=== PATIENT | male | born 1970 | race Caucasian/White ===

== ENCOUNTER 2019-08-16 19:25 | Inpatient (IN) | payer OTHER ==
[~2019-08-16] VITALS: Ht 170.2 cm; Wt 81.6 kg
--- NOTE | ~2019-08-16 | PROC ---
[address] [address] PROCEDURE REPORT Name: DARCI HERRERA Room: [address] IN M.R.#: [id number] Admission: 08/16/19 Attend Phys: Darwin Norman MD Discharge: Date of : 68 Report #: [id number] THIS REPORT FOR: //name// For GI report, please see the Provation report in Perceptive 7 content. By: 0640Medical Records Staff KATI /ARABELLA
--- NOTE | ~2019-08-16 | PROC ---
[address] [address] PROCEDURE REPORT Name: DARCI HERRERA Room: [address] IN M.R.#: [id number] Admission: 08/16/19 Attend Phys: Darwin Norman MD Discharge: Date of : 68 Report #: [id number] THIS REPORT FOR: //name// For GI report, please see the Provation report in Perceptive 7 content. By: 0633Medical Records Staff KATI /ARABELLA
[2019-08-16 19:33] VITALS: BP 145/92
[2019-08-16] MEDS ORDERED: EUTHYROX175 MCG PO (19:36)
[2019-08-16 20:07] LABS: ABSOLUTE BASOPHILS 0.1 thou/uL (0.0-0.2); ABSOLUTE EOSINOPHILS 0.1 thou/uL (0.0-0.7); ABSOLUTE LYMPHOCYTES 1.7 thou/uL (0.8-5.3); ABSOLUTE NEUTROPHILS 14.7 thou/uL (1.6-8.1); BASOPHILS 0.3 %; EOSINOPHILS 0.5 %; HEMATOCRIT 42.3 % (42.0-52.0); LYMPHOCYTES 9.9 %; MCH 30.3 pg (26.0-34.0); MCHC 35.5 g/dL (28.0-37.0); MCV 85.3 fL (80.0-100.0); MPV 8.6 fl. (7.2-11.1); NUCLEATED RBCS 0 /100WBC; PLATELET COUNT* 227 thou/uL (150-400); POLYS 83.3 %; RBC 4.96 mil/uL (4.50-6.00); RDW-CV 12.5 % (10.5-14.5); WBC 17.6 thou/uL (4.0-11.0)
[2019-08-16 20:16] LABS: CALCIUM 8.4 mg/dL (8.5-10.1); CREATININE 0.9 mg/dL (0.6-1.3); POTASSIUM 3.7 mmol/L (3.5-5.1)
[2019-08-16 20:17] LABS: INR 0.9; PROTIME 9.7 Seconds (9.20-11.50)
[2019-08-16 20:27] LABS: TOTAL BILIRUBIN 0.5 mg/dL (<0.1-1.0); TOTAL PROTEIN 7.3 g/dL (6.4-8.2)
[2019-08-17] VITALS (7 sets, daily range): BP systolic 98–135; BP diastolic 52–66
--- NOTE | 2019-08-17 08:08 | NUR ---
PT A+O X4. ARRRIVED TO ROOM 110 PER CART. SLEEPY UPON ARRIVAL BUT AWOKE EASILY TO VOICE. ABLE TO FINISH ADMISSION HISTORY WITH . PAIN MEDS FROM ER EFFECTIVE THROUGH END OF SHIFT. CALL LIGHT IN REACH. HOURLY ROUNDING FOR SAFETY.
[2019-08-17 09:31] LABS: ABSOLUTE BASOPHILS 0.1 thou/uL (0.0-0.2); ABSOLUTE LYMPHOCYTES 1.3 thou/uL (0.8-5.3); ABSOLUTE MONOCYTES 1.2 thou/uL (0.0-1.2); ABSOLUTE NEUTROPHILS 14.2 thou/uL (1.6-8.1); BASOPHILS 0.4 %; EOSINOPHILS 0.1 %; HEMATOCRIT 38.3 % (42.0-52.0); HEMOGLOBIN 13.5 gm/dL (14.0-18.0); LYMPHOCYTES 7.6 %; MCH 29.8 pg (26.0-34.0); MCHC 35.2 g/dL (28.0-37.0); MCV 84.6 fL (80.0-100.0); MONOCYTES 6.9 %; MPV 8.6 fl. (7.2-11.1); NUCLEATED RBCS 0 /100WBC; PLATELET COUNT* 174 thou/uL (150-400); RBC 4.53 mil/uL (4.50-6.00); RDW-CV 12.9 % (10.5-14.5); WBC 16.7 thou/uL (4.0-11.0)
[2019-08-17 09:38] LABS: ALBUMIN 3.1 g/dL (3.4-5.0); CALCIUM 7.6 mg/dL (8.5-10.1); CREATININE 0.8 mg/dL (0.6-1.3); POTASSIUM 3.8 mmol/L (3.5-5.1); TOTAL BILIRUBIN 1.1 mg/dL (<0.1-1.0); TOTAL PROTEIN 6.1 g/dL (6.4-8.2)
[2019-08-17 11:11] LABS: AMP/METHAMP Negative (Negative); BARBITURATES Negative (Negative); BENZODIAZEPINES Negative (Negative); COCAINE Negative (Negative); METHADONE Negative (Negative); OPIATES POSITIVE (Negative); PCP Negative (Negative); THC Negative (Negative)
[2019-08-17 12:47] LABS: INFLUENZA A ANTIGEN Negative (Negative); INFLUENZA B ANTIGEN Negative (Negative)
--- NOTE | 2019-08-17 13:02 | NUR ---
CM COMPLETED INITIAL ASSESSMENT TO DISCUSS D/C PLAN. PT RESTING W/EYES CLOSE. PT'S AT BEDSIDE. DIONNA STATED PT IS EMLOYEED, ACTIVE AND INDEPENDENT. PT HAS NO DMES AND NO HX W/SNF OR HH. PT HAS SUPPORTIVE FAMILY. CM TO CONT TO FOLLOW.
--- NOTE | 2019-08-17 14:35 | EKG ---
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 Delivery Specialist: : 1970 Requested By: Sun Dee Order Number: [id number] MD: Jerod Mosquera Measurements Intervals [place] Rate: 72 P: 56 DE: 176 QRS: -36 QRSD: 106 T: 56 QT: 389 QTc: 426 Interpretive Statements Sinus rhythm Left axis deviation Low voltage, extremity leads Abnormal R-wave progression, late transition No previous ECG available for comparison Electronically Signed On 08-17-2019 14:34:32 BLANCHING MACHINE OPERATOR by Jerod Mosquera [email or web address] <ELECTRONICALLY SIGNED> By: Jerod Mosquera MD, [facility] 08/17/19 1434 30 30 Jerod Mosquera MD, FACC /EPI
--- NOTE | 2019-08-17 14:40 | EKG ---
[place] [address] ELECTROCARDIOGRAM REPORT Name: DARCI HERRERA Room: [address] ADM IN M.R.#: [id number] Admission: 08/16/19 Attend Phys: Darwin Norman MD Discharge: Date of : 68 Report #: [id number] THIS REPORT FOR: //name// [facility] Test Date: 2019-08-17 Test Time: 10:32:37 Pat Name: DARCI HERRERA Department: Room: [address] Gender: M President: KF : 1970 Requested By: Darwin Norman Order Number: [id number] Reading MD: Jerod Mosquera Measurements Intervals [place] Rate: 92 P: 49 [place]: 165 QRS: -36 QRSD: 100 T: 36 QT: 329 QTc: 407 Interpretive Statements Sinus rhythm Left axis deviation Borderline low voltage, extremity leads Abnormal R-wave progression, late transition ST elev, probable normal early repol pattern No previous ECG available for comparison Electronically Signed On 08-17-2019 14:39:21 KITCHEN HAND by Jerod Mosquera [email or web address] <ELECTRONICALLY SIGNED> By: Jerod Mosquera MD, FAC 08/17/19 1439 1032 1032 Jerod Mosquera MD, [facility] /EPI
--- NOTE | 2019-08-17 21:21 | NUR ---
I ASSUMED CARE OF THE PATIENT AT 0700. HE WAS ALERT AND ORIENTED X4, BUT VERY GROGGY. BED IS IN THE LOW LOCKED POSITION AND CALL LIGHT IS IN REACH. HOURLY ROUNDING IS COMPLETED AND PATIENT NEEDS ARE MET. PAIN IS NOT WELL CONTROLLED SUBJECTIVELY, BUT PATIENT RESTS WELL FOR SEVERAL HOURS AFTER MEDS ARE GIVEN. THE SHIFT GOES ON, HE GETS A FEVER AND TYLENOL HELPS. AT THE END OF THE SHIFT, FEVER IS HIGH AND IS ONLY PARTIALLY RELIEVED. NEW ORDERS OBTAINED. PHYSICAN CONTACTED. FAMILY IS AT THE BEDSIDE. ICE PACKS WERE APPLIED, BLANKETS REMOVED, ROOM TEMP DECREASED, PRN MEDS GIVEN. EGD IS SCHEDULED FOR TOMORROW PER DR MOHR. HE IS UNABLE TO SIGN CONSENT AT THIS TIME. REPORT GIVEN TO LEROY AND WILL CONTINUE TO MONITOR. BLOOD PRESSURE IS TRENDING DOWN ALL DAY.
--- NOTE | 2019-08-17 22:23 | NUR ---
INITAL ASSESSMENT COMPLETED AT 1999. LACTIC ACID AND BLOOD CULTURES DRAWN FOR ELEVATED TEMP. DYNAMAP SET TO RECORD HOURLY BLOOD PRESSURE. PULSE OX ON PT TO MONITOR OXYGEN DEMAND. HOURLY TEMPERATURES BEING TAKEN. PT LETHARGIC, FOLLOWS COMMANDS. PT'S AT BEDSIDE WITH CALL LIGHT TO NOTIFY STAFF.
[2019-08-18] VITALS (9 sets, daily range): BP systolic 98–124; BP diastolic 55–67
[2019-08-18 05:02] LABS: ALBUMIN 2.6 g/dL (3.4-5.0); CALCIUM 7.8 mg/dL (8.5-10.1); CREATININE 1.2 mg/dL (0.6-1.3); TOTAL BILIRUBIN 1.3 mg/dL (<0.1-1.0); TOTAL PROTEIN 5.9 g/dL (6.4-8.2)
[2019-08-18 05:25] LABS: HEMATOCRIT 38.5 % (42.0-52.0); HEMOGLOBIN 13.5 gm/dL (14.0-18.0); MCH 30.3 pg (26.0-34.0); MCHC 35.1 g/dL (28.0-37.0); MCV 86.5 fL (80.0-100.0); MPV 10.1 fl. (7.2-11.1); NUCLEATED RBCS 0 /100WBC; PLATELET COUNT* 135 thou/uL (150-400); RBC 4.45 mil/uL (4.50-6.00); WBC 9.1 thou/uL (4.0-11.0)
[2019-08-18 05:35] LABS: URINE BILIRUBIN NEGATIVE (Negative); URINE BLOOD NEGATIVE (Negative); URINE CLARITY CLEAR; URINE COLOR YELLOW; URINE GLUCOSE-RANDOM NEGATIVE (Negative); URINE KETONES NEGATIVE (Negative); URINE LEUKOCYTES-REFLEX NEGATIVE (Negative); URINE NITRITE-REFLEX NEGATIVE (Negative); URINE PROTEIN 1+ (Negative); URINE SPECIFIC GRAVITY 1.025 (1.005-1.030); URINE UROBILINOGEN 0.2 E.U./dl (0.2-1.0)
[2019-08-18 06:12] LABS: ABSOLUTE LYMPHOCYTES 0.8 thou/uL (0.8-5.3); ABSOLUTE MONOCYTES 0.1 thou/uL (0.0-1.2); ABSOLUTE NEUTROPHILS 8.2 thou/uL (1.6-8.1)
[2019-08-18 06:13] LABS: ANISOCYTOSIS 1+; PLATELET ESTIMATE DECREASED; POIKILOCYTOSIS 1+
--- NOTE | 2019-08-18 06:13 | NUR ---
HOURLY VITAL SIGNS DONE DURING MACHINE CELL TUBER. PT'S T MAX AT WAS 103 ORAL. PT PACKED IN ICE AND GIVEN TYLENOL DURING THAT TIME. PT LETHARGIC AND CONUSED DURING SHIFT. PT MORE ALERT AND DOES ANSWER APPROPRIATELY AT THIS TIME. PT HAD TOTAL 600 ML TEA COLORED CLOUDY URINE PUTPUT FOR ENTIRE SHIFT.
--- NOTE | 2019-08-18 08:38 | NUR ---
0881 ASSUMED CARE OF PATIENT. PLEASE SEE DOCUMENTED ASSESSMENT. PT IS DROWSY BUT ORIENTED. UP TO BATHROOM WITH ASSIST FOR VOID AND LOOSE BROWN STOOL.
--- NOTE | 2019-08-18 11:08 | NUR ---
1030 TO OR FOR EGD.
--- NOTE | 2019-08-18 14:14 | NUR ---
1340 RECEIVED BACK FROM PACU. ICE BAGS RENEWED. ABLE TO TAKE WATER NOW
--- NOTE | 2019-08-18 15:23 | NUR ---
DR THORNTON TO SEE PATIENT. STOOL TO LAB FOR ENTERIC PATHOGENS
--- NOTE | 2019-08-18 17:18 | NUR ---
PATIENT PRORESSING TOWARDS GOALS. NO FEVER SPIKES TODAY. TO BR FOR MULTIPLE STOOLS.SPECIMEN SENT. EGD COMPLETED. DIET RESUMED BUT PT IS NOT HUNGRY. MANY VISITORS TODAY. AWAIT BLOOD CULTURES AND PATHOLOGY
[2019-08-19] VITALS: BP 120/76
[2019-08-19 03:30] VITALS: BP 134/70
[2019-08-19 03:59] LABS: ABSOLUTE MONOCYTES 0.7 thou/uL (0.0-1.2); ABSOLUTE NEUTROPHILS 9.9 thou/uL (1.6-8.1); BASOPHILS 0.4 %; EOSINOPHILS 0.2 %; HEMATOCRIT 39.1 % (42.0-52.0); HEMOGLOBIN 13.7 gm/dL (14.0-18.0); LYMPHOCYTES 8.9 %; MCH 30.1 pg (26.0-34.0); MCHC 35.2 g/dL (28.0-37.0); MCV 85.5 fL (80.0-100.0); MONOCYTES 5.9 %; MPV 9.3 fl. (7.2-11.1); NUCLEATED RBCS 0 /100WBC; PLATELET COUNT* 144 thou/uL (150-400); POLYS 84.6 %; RBC 4.57 mil/uL (4.50-6.00); RDW-CV 12.6 % (10.5-14.5); WBC 11.7 thou/uL (4.0-11.0)
[2019-08-19 04:24] LABS: ALBUMIN 2.6 g/dL (3.4-5.0); CALCIUM 8.6 mg/dL (8.5-10.1); CREATININE 1.6 mg/dL (0.6-1.3); MAGNESIUM 1.7 mg/dL (1.8-2.4); PHOSPHORUS* 2.8 mg/dL (2.5-4.9); POTASSIUM 3.6 mmol/L (3.5-5.1); TOTAL BILIRUBIN 0.9 mg/dL (<0.1-1.0); TOTAL PROTEIN 6.7 g/dL (6.4-8.2)
[2019-08-19 08:15] VITALS: BP 122/71
--- NOTE | 2019-08-19 09:46 | NUR ---
PATIENT HAS SLEPT WELL THROUGHOUT THE NIGHT. VSS ON RA, ALTHOUGH TEMP ELEVATED. TYLENOL GIVEN AND TEMP IS NOW BACK TO 98.3. FAMILY AT BEDSIDE. MEDICATIONS GIVEN ORDERED AND CHARTED. ASSESSMENT CHARTED. IV IN RIGHT AC-D5 1/2 W/2OK @ 80ML/HR. IV ABT GIVEN WITHOUT ANY ADVERSE SIDE EFFECTS NOTED. PATIENT INSTRUCTED TO USE CALL LIGHT WHEN NEEDING ASSISTANCE. HOURLY ROUNDS MADE. WILL CONTINUE WITH PLAN OF CARE AND NURSING TO MONITOR.
--- NOTE | 2019-08-19 11:54 | CON ---
[address] [address] CONSULTATION Name: DARCI HERRERA Room: [address] IN M.R.#: [id number] Admission: 08/16/19 Attend Phys: Darwin Norman MD Discharge: Date of : 68 Report #: [id number] THIS REPORT FOR: //name// CC: Darwin Brown DATE OF SERVICE: 08/18/2019 INFECTIOUS DISEASE CONSULTATION ATTENDING PHYSICIAN: Darwin Norman MD REASON FOR EVALUATION: Abdominal pain with high-grade fevers. HISTORY OF PRESENT ILLNESS: Chart reviewed, the patient examined. This is a 49-year-old without significant medical history. He does describe reflux disease, who over the course of a fairly short period of time on day of admission, had developed severe epigastric type pain with associated nausea, several episodes of emesis, did appreciate some dyspnea as well and he attributes to the severe pain. He was evaluated in the Emergency Room, not felt to be cardiac in nature. Initial white count was elevated at 17.6. Chest x-ray was otherwise unremarkable as was CT of the chest excluded dissection. Lactic acid was normal, range is 0.8. Ultrasound of the abdomen did show evidence of cholelithiasis and sludge associated with the gallbladder, some wall thickening. Influenza antigen was negative. Initially had been afebrile; however, within the first 24 hours had developed high-grade fevers to 103.1. He has had persistent pain and actually underwent upper endoscopy today, which showed some gastritis, erosive esophagitis. Due to fevers, he was empirically started on broad-spectrum antimicrobial therapy with piperacillin and tazobactam. Temperature is somewhat lower today, although still 100-101 range on last check. He is mildly encephalopathic and somnolent perhaps due to analgesics. On questioning with his spouse as well, denied any particular exposure history. 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 No recent travel. They have 2 dogs, which they have had for a number of years. He is not aware of any dietary indiscretion. He does eat food from [place]. ALLERGIES: None known. MEDICATIONS: Include pantoprazole, enoxaparin, ketorolac, p.r.n. analgesics, antiemetics, Zosyn, lorazepam as needed, nicotine patch. PAST MEDICAL HISTORY: Reflux, hyperlipidemia, previous appendectomy, tonsillectomy. SOCIAL HISTORY: Smokes a pack a day for the last 32 years, occasional ethanol twice weekly. [place] [address] CONSULTATION Name: DARCI HERRERA Room: [address]#: [id number] Admission: 08/16/19 Attend Phys: Darwin Norman MD Discharge: Date of : 68 Report #: [id number] FAMILY HISTORY: Noncontributory. REVIEW OF SYSTEMS: As noted above. PHYSICAL EXAMINATION: GENERAL: He is quite lethargic, does arouse, difficult to ascertain since he is post-procedure. He is at least moderate distress. VITAL SIGNS: Recent temperature 100.7, pulse 84, respirations 20. Blood cultures 122/60. SKIN: Warm, dry, no rashes. HEENT: Normocephalic. Extraocular muscles intact. NECK: Supple. LUNGS: Diminished breath sounds, otherwise clear. HEART: Regular. I do not appreciate murmur. ABDOMEN: Somewhat tender to palpation, mildly distended. I do not think there are any peritoneal signs. GENITOURINARY AND RECTAL: Deferred. LABORATORY DATA: Blood cultures are sterile thus far. CBC from earlier today, white count of 9.1, H and H 13.5 and 38.5, platelets of 135. Urinalysis unrevealing. Electrolytes: Sodium 137, potassium 4.0, chloride 102, bicarbonate is 29, anion gap of 6, BUN and creatinine 15 and 1.2, glucose of 143. LFTs unremarkable. Albumin of 2.6. Total protein 5.9, estimated GFR 64. Lactic acid yesterday evening was 2.0. Influenza antigen was negative. Ultrasound as described above. ASSESSMENT: Febrile illness with associated abdominal pain. At this point, it is not entirely clear as to the etiology. Certainly biliary tract etiology may well be a possibility. GI is evaluating. We will see what they recommend. There is enteric pathogen culture obtained on the stool. At this point, would continue empiric therapy, Zosyn is reasonable choice for intra-abdominal type complaints, certainly at risk for nosocomial-related infectious complications as well given his altered state and particular aspiration. We will await blood culture results. At this point, it is not clear any additional diagnostic testing is warranted. Pending is current outstanding results and see how he does clinically over the next 24-48 hours. <ELECTRONICALLY SIGNED> By: Jose Panchal MD 08/19/19 1154 1707 0208Jose Panchal MD /nt
--- NOTE | 2019-08-19 12:55 | CON ---
[address] [address] CONSULTATION Name: DARCI HERRERA Room: [address] IN M.R.#: [id number] Admission: 08/16/19 Attend Phys: Darwin Norman MD Discharge: Date of : 68 Report #: [id number] THIS REPORT FOR: //name// CC: Darwin Saunders Mouse Chip Mouse DO DICTATED BY: Lillian Quan [facility] DATE OF SERVICE: 08/17/2019 Please note at the time of this dictation, the patient was seen and physically examined by myself. REASON FOR CONSULTATION: Nausea, vomiting and epigastric burning into his mid chest and some generalized abdominal pain. HISTORY OF PRESENT ILLNESS: This is a 49-year-old male who presented to the Emergency Room with worsening of this epigastric pain that started. He does state he has a history of GERD, but he does not take anything on a regular basis for this that has been going on for the last 8 hours and progressively gotten worse. He states he noticed he was having some difficulty breathing with all this severe pain, then radiated into his back. He denies any bright red blood or coffee ground emesis. His bowels move daily, soft and formed with no evidence of any bright red blood or melanotic stool. He has never had any endoscopy studies done per his . The patient earlier today after arriving on the floor had an episode of shaking and not being coherent, having increased difficulty breathing and dropping his sats. He was given medications for his pain and some Ativan and is currently sleeping at all off and we will have to wait for further evaluation endoscopically once he has recovered from this bout. ALLERGIES: No known drug allergies. MEDICATIONS FROM HOME: He is on levothyroxine. PAST MEDICAL HISTORY: Acid reflux, thyroid and hyperlipidemia. PAST SURGICAL HISTORY: Negative. FAMILY HISTORY: Noncontributory and negative for any GI or female cancers. SOCIAL HISTORY: He does chew tobacco daily as well as smoked about a pack a week. He does drink about a pint total in a month socially and denies any illegal drug use. REVIEW OF SYSTEMS: Twelve-point review [place] [address] CONSULTATION Name: JAVIERDARCI Terry Abdirahman Room: [address] IN [facility]#: [id number] Admission: 08/16/19 Attend Phys: Darwin Norman MD Discharge: Date of : 68 Report #: [id number] except what is mentioned in the HPI. PHYSICAL EXAMINATION: VITAL SIGNS: Temperature 36.4, pulse 65, respirations 16 and blood pressure 135/65. HEART: Regular rate and rhythm. LUNGS: Diminished, but clear. ABDOMEN: Soft, positive bowel sounds in all 4 quadrants with tenderness noted throughout the entire abdomen, especially on the right side and in the epigastric area. LABORATORY DATA: Hemoglobin is 13.5, white count is 16.7 and platelets 174. GFR is 102. Total bilirubin 1.1, alkaline phosphatase 76, ALT 24, AST is 14. Chest x-ray is normal and the CT is completely normal, shown some cholelithiasis. IMPRESSION: 1. Nausea and vomiting. 2. Abdominal pain, burning sensation. 3. Leukocytosis. 4. Questionable seizure-like activity. PLAN: 1. Ultrasound of the abdomen pending. 2. We will await patient's mental status to return back to baseline. 3. Consider an EGD for his symptoms and that will be determined once Dr. Carvajal sees the patient later today. Thank you for allowing us to participate in this patient's care. Please do not hesitate to call with any questions in regard to this consult. <ELECTRONICALLY SIGNED> By: [place] Hugo Carvajal MD 08/19/19 1255 1216 1524Victor Hugo Carvajal MD /nt
--- NOTE | 2019-08-19 14:07 | PATH ---
[facility] [address] [place] [address] PATHOLOGY RPT PROCEDURE Name: DARCI KAUFFMAN Room: [facility] IN M.R.#: [id number] Admission: 08/16/19 Date of : 68 Discharge: Report #: [id number] Path Case #: [id number] [facility] Accession Number: [id number] . 01 Material submitted: . PART A: duodenum - DUODENAL BIOPSY PART B: stomach - GASTRIC BIOPSY . 01 Clinical history: . None provided . 02 Diagnosis: A. Duodenal biopsy: - Moderate nonspecific active duodenitis, negative for granulomas, viral inclusions and dysplasia. . B. Gastric biopsy: - Mild nonspecific chronic gastritis, negative for Helicobacter pylori organisms, granulomas and dysplasia. . (KAREN:javier; 08/19/2019) . Special stain on B: H. pylori immuno MBR 08/19/2019 1045 Local . 02 Electronically signed: . Xiang Pike MD, Pathologist NPI- [id number] . 01 Gross description: . A. Received in formalin labeled "Darci Kaufmfan, duodenal biopsy," are 5 segments of luna soft tissue measuring 0.9 x 0.7 x 0.2 cm in aggregate dimensions and ranging from 0.2 to 0.4 cm in maximum dimension. The specimen is submitted entirely in cassette A1. . B. Received in formalin labeled "Darci Kauffman, gastric biopsy for gastritis," are 2 segments of luna soft tissue measuring 0.9 x 0.2 x 0.2 cm in aggregate dimensions and ranging from 0.3 to 0.6 cm in maximum dimension. The specimen is submitted entirely in cassette B1. (TSD; 08/18/2019) TOB/TOB 08/18/20191955 Local . 02 Pathologist provided ICD-10: K29.80, K29.50 . 02 CPT . 156722, 044160, T93521 Specimen Comment: A courtesy copy of this report has been sent to [phone], [place] [address] PATHOLOGY RPT PROCEDURE Name: DARCI KAFUFMAN Room: [address] IN .R.#: [id number] Admission: 08/16/19 Date of : 68 Discharge: Report #: [id number] Path Case #: [id number] Specimen Comment: 0113, Specimen Comment: Report sent to ,DR BAKER / DR LUJAN Performed at: [address], [place], [place] [address] MD Sergo Coronado MD Phone: [phone] Performed at: [address] [address], [place], [place] [id number] MD Xiang Pike MD Phone: [phone]
[2019-08-19 16:00] VITALS: BP 123/78
--- NOTE | 2019-08-19 16:29 | NUR ---
PATIENT ALERT AND ORIENTED X 4. VITAL SIGNS STABLE ON ROOM AIR. PATIENT HAS REMAINED AFEBRILE TODAY. UP INDEPENDENTLY IN ROOM. IV PATENT WITH FLUIDS INFUSING. PAIN BEING MANAGED WITH IV MEDICATION. DENIES NAUSEA AT THIS TIME. PATIENT HAS LACK OF APPETITE. HOURLY ROUNDS MAINTAINED THROUGHOUT THE SHIFT. CALL LIGHT WITHIN REACH. NURSING WILL CONTINUE TO MOITOR.
[2019-08-19 20:30] VITALS: BP 124/76
[2019-08-19 23:23] VITALS: BP 125/79
[2019-08-20 02:06] LABS: HEPATITIS B SURFACE AG Negative (Negative)
[2019-08-20 03:57] LABS: HEMATOCRIT 32.5 % (42.0-52.0); HEMOGLOBIN 11.8 gm/dL (14.0-18.0); MCH 30.9 pg (26.0-34.0); MCHC 36.2 g/dL (28.0-37.0); MCV 85.3 fL (80.0-100.0); MPV 8.5 fl. (7.2-11.1); RBC 3.81 mil/uL (4.50-6.00); RDW-CV 12.8 % (10.5-14.5)
[2019-08-20 04:06] LABS: CALCIUM 8.3 mg/dL (8.5-10.1); CREATININE 1.2 mg/dL (0.6-1.3); PHOSPHORUS* 2.4 mg/dL (2.5-4.9); POTASSIUM 3.5 mmol/L (3.5-5.1); TOTAL BILIRUBIN 0.6 mg/dL (<0.1-1.0); TOTAL PROTEIN 5.6 g/dL (6.4-8.2)
--- NOTE | 2019-08-20 06:17 | NUR ---
Alert and oriented x 4. Vitals are stable,roomair sat 95-97%. He is up independently to the bathroom. Stool speciman obtained and sent to lab. He had Iv toradol for pain and tylenol x 1 this shift. He did have lorazepam at bedtime and it helped him sleep.
[2019-08-20 07:35] VITALS: BP 134/78
[2019-08-20 16:00] VITALS: BP 128/73
--- NOTE | 2019-08-20 17:03 | NUR ---
PT REMAINED ALERT AND ORIENTED. PT RESTING IN BED. ORDER FOR C.DIFF SAMPLE, PT HAS NOT HAD BM SINCE ORDER PLACED. FALL RISK PRECAUTIONS IN PLACE. HOURLY ROUNDING COMPLETED. WILL CONTINUE TO MONITOR.
[2019-08-20 20:27] VITALS: BP 134/76
--- NOTE | 2019-08-21 05:12 | NUR ---
PATIENT DID NOT REQUEST ANY PAIN MEDICATION OR REPORT ANY NAUSEA. STILL UP AD ARCHANA AND DID GET STOOL SAMPLE TO LAB. HIS STOOL IS WATERY AND BLACK. HE REPORTS THIS STARTING LIKE THIS YESTERDAY. FLUIDS AND PROBIOTICS GIVEN SCHEDULED. PLAN IS TO CONTINUE ABX TREATMENT. NO FEVER THIS SHIFT. WILL CONTINUE TO FOLLOW PLAN OF CARE.
[2019-08-21 07:05] VITALS: BP 123/75
--- NOTE | 2019-08-21 17:27 | NUR ---
pt remained alert and oriented. pt had fevers throughout the day, meds given as ordered. new iv placed lt ac. fall risk precautions in place. hourly rounding completed. will continue to monitor.
[2019-08-21 18:33] VITALS: BP 136/71
[2019-08-21 21:27] VITALS: BP 136/85
[2019-08-22 04:25] LABS: HEMATOCRIT 30.9 % (42.0-52.0); HEMOGLOBIN 10.8 gm/dL (14.0-18.0); MCH 30.3 pg (26.0-34.0); MCHC 35.1 g/dL (28.0-37.0); MCV 86.1 fL (80.0-100.0); RBC 3.59 mil/uL (4.50-6.00); RDW-CV 12.9 % (10.5-14.5); WBC 10.1 thou/uL (4.0-11.0)
[2019-08-22 04:39] LABS: ALBUMIN 1.9 g/dL (3.4-5.0); CALCIUM 8.1 mg/dL (8.5-10.1); MAGNESIUM 1.7 mg/dL (1.8-2.4); POTASSIUM 3.3 mmol/L (3.5-5.1); TOTAL BILIRUBIN 0.3 mg/dL (<0.1-1.0); TOTAL PROTEIN 5.6 g/dL (6.4-8.2)
--- NOTE | 2019-08-22 05:09 | NUR ---
PATIENT AMBULATING HALLS WELL AND TOLERATING FLUIDS. HIS DIARRHEA HAS SUBSIDED AND HE HAS NOT REPORTED ANY PAIN OR NAUSEA. PLAN IS FOR FURTHER OBSERVATION TO PLAN DISCHARGE. SLEPT WELL ALL SHIFT. WILL CONTINUE TO FOLLOW PLAN OF CARE.
[2019-08-22 07:05] VITALS: BP 138/86
[2019-08-22 16:00] VITALS: BP 133/84
--- NOTE | 2019-08-22 17:22 | NUR ---
PT REMAINED ALERT AND ORIENTED. PT RESTING IN BED. PT PASSING GAS AND HVAING BMS AFTER SUPPOSSITORY. ABD STLIGHTLY SOFTER THAN THIS MORNING. FALL RISK PRECAUTIONS IN PLACE. HOURLY ROUNDING COMPLETED. WILL CONTINUE TO MONITOR.
[2019-08-22 20:06] VITALS: BP 131/81
[2019-08-23 03:52] LABS: HEMATOCRIT 33.7 % (42.0-52.0); HEMOGLOBIN 11.6 gm/dL (14.0-18.0); MCH 29.9 pg (26.0-34.0); MCHC 34.6 g/dL (28.0-37.0); MCV 86.4 fL (80.0-100.0); RBC 3.9 mil/uL (4.50-6.00); RDW-CV 13.2 % (10.5-14.5); WBC 10.5 thou/uL (4.0-11.0)
[2019-08-23 04:02] LABS: ALBUMIN 1.9 g/dL (3.4-5.0); CALCIUM 7.8 mg/dL (8.5-10.1); MAGNESIUM 1.8 mg/dL (1.8-2.4); POTASSIUM 3.3 mmol/L (3.5-5.1); TOTAL BILIRUBIN 0.2 mg/dL (<0.1-1.0); TOTAL PROTEIN 5.9 g/dL (6.4-8.2)
--- NOTE | 2019-08-23 05:02 | NUR ---
PATIENT AMBULATING WELL AND TOLERATING FLUIDS AND FOOD WELL. HIS APPETITE INCREASED OVER THE LAST 24 HOURS. HE HAS NOT REPORTED ANY PAIN OR NAUSEA. HE REPORTS HIS ABDOMEN IS FEELING SOFTER AND LESS PRESSURE. HE REPORTS PASSING GAS AND BELCHING. HE SLEPT THROUGH THE NIGHT WELL. WILL CONTINUE TO FOLLOW PLAN OF CARE.
[2019-08-23 08:20] VITALS: BP 122/76
[2019-08-23 16:17] VITALS: BP 126/91
--- NOTE | 2019-08-23 19:00 | NUR ---
PATIENT PLEASANT AND COOPERATIVE THRU SHIFT. ALERT AND ORIENTED. PATIENT STATES NOT FEELING WELL THIS SHIFT, PATIENT ENC TO EAT BLAND FOODS, IV FLUIDS INFUSING W/O DIFF. PATIENT STATES MULTIPLE TRIPS TO THE BR, NOT OBSERVED BY NURSING. PATIENT REQUESTS TO GET SOME REST THIS AFTERNOON, ENC TO DIM LIGHTS AND CLOSE THE DOOR. XRAY TESTING DONE THIS AM. HRLY ROUNDS DONE. CALL LIGHT INR EACH. ~TJRN
[2019-08-23 20:00] LABS: CALCIUM 8.2 mg/dL (8.5-10.1); POTASSIUM 3.7 mmol/L (3.5-5.1)
[2019-08-24 04:19] LABS: HEMATOCRIT 32.5 % (42.0-52.0); HEMOGLOBIN 11.4 gm/dL (14.0-18.0); MCH 30.2 pg (26.0-34.0); MCHC 35.1 g/dL (28.0-37.0); MPV 8.2 fl. (7.2-11.1); RBC 3.78 mil/uL (4.50-6.00); RDW-CV 13.1 % (10.5-14.5); WBC 11.2 thou/uL (4.0-11.0)
[2019-08-24 04:41] LABS: CALCIUM 7.7 mg/dL (8.5-10.1); CREATININE 0.9 mg/dL (0.6-1.3); MAGNESIUM 1.9 mg/dL (1.8-2.4); POTASSIUM 3.4 mmol/L (3.5-5.1); TOTAL BILIRUBIN 0.3 mg/dL (<0.1-1.0); TOTAL PROTEIN 5.9 g/dL (6.4-8.2)
--- NOTE | 2019-08-24 06:45 | NUR ---
PATIENT HAS SLEPT WELL THROUGHOUT THE NIGHT. VSS ON RA. NO C/O PAIN. MEDICATIONS GIVEN ORDERED AND CHARTED. ASSESSMENT CHARTED. IV IN RIGHT FOREARM-LR @ 80ML/HR. PATIENT HAS BEEN NPO SINCE MIDNIGHT D/T ABDOMINAL SERIES SCHEDULED THIS AM. PATIENT INSTRUCTED TO USE CALL LIGHT WHEN NEEDING ASSISTANCE. HOURLY ROUNDS MADE. WILL CONTINUE WITH PLAN OF CARE AND NURSING TO MONITOR.
[2019-08-24 07:20] VITALS: BP 132/83
[2019-08-24 16:00] VITALS: BP 166/72
--- NOTE | 2019-08-24 17:00 | NUR ---
pt remained alert and oriented. ot passing gas and walking in halls. fall risk precautions in place. hourly rounding completed. will continue to monitor.
[2019-08-25 04:39] VITALS: BP 166/72
--- NOTE | 2019-08-25 06:17 | NUR ---
PATIENT HAS SLEPT WELL THROUGHOUT THE NIGHT. VSS ON RA. MEDICATIONS GIVEN ORDERED AND CHARTED. NO C/O NAUSEA OR VOMITING. PATIENT STILL HAVING DIARRHEA AT TIMES. BOWEL SOUNDS ARE HYPOACTIVE AND ABDOMEN IS FIRM AND DISTENDED. PATIENT REMAINS ON CLEAR LIQUID DIET AT THIS TIME PER ORDER. IV IN RIGHT AC-LR @ 80ML/HR. PATIENT INSTRUCTED TO USE CALL LIGHT WHEN NEEDING ASSISTANCE. HOURLY ROUNDS MADE. WILL CONTINUE WITH PLAN OF CARE AND NURSING TO MONITOR.
[2019-08-25 07:15] VITALS: BP 129/86
[2019-08-25 16:19] VITALS: BP 133/99
--- NOTE | 2019-08-25 17:13 | NUR ---
PT REMAINED ALERT AND ORIENTED. BOWEL PREP STARTED. PAIN MEDS GIVEN ORDERED. FALL RISK PRECAUTIONS IN PLACE. HOURLY ROUNDING COMPLETED. WILL CONTINUE TO MONITOR.
[2019-08-25 22:00] VITALS: BP 136/81
--- NOTE | 2019-08-26 06:59 | NUR ---
PATIENT HAS SLEPT OFF AND ON DURING THE NIGHT. VSS ON RA. MEDICATIONS GIVEN ORDERED AND CHARTED. PATIENT HAS REMAINED NPO SINCE MIDNIGHT D/T SCHEDULED COLONOSCOPY TODAY. CONSENT SIGNED. ABDOMEN FIRM AND DISTENDED WITH BOWEL SOUNDS PRESENT. IV IN RIGHT AC-LR @ 80ML/HR. PATIENT INSTRUCTED TO USE CALL LIGHT WHEN NEEDING ASSISTANCE. HOURLY ROUNDS MADE. WILL CONTINUE WITH PLAN OF CARE AND NURSING TO MONITOR.
[2019-08-26 08:00] VITALS: BP 132/77
--- NOTE | 2019-08-26 15:45 | NUR ---
PT C/O A CATCHING SHARP PAIN IN RIGHT UPPER CHEST. THIS PAIN IS WORSE WITH DEEP BREATHING AND STATED THAT IT TAKES HIS BREATH AWAY. PT STATED THAT IT HAS ABOUT 3 SHARP SHOCKING TYPE PAINS AND THEN GOES AWAY FOR A SHORT AMOUNT OF TIME. CONTACTED THE PATIENTS NURSE JAY FROM [employer] WITH INFORMATION TO HELP PASS ON TO HOSPITALIST.
[2019-08-26 20:00] VITALS: BP 124/76
[2019-08-27] VITALS: BP 134/83
[2019-08-27 03:30] VITALS: BP 131/86
[2019-08-27 04:18] LABS: HEMATOCRIT 33.6 % (42.0-52.0); HEMOGLOBIN 11.6 gm/dL (14.0-18.0); MCH 29.7 pg (26.0-34.0); MCHC 34.4 g/dL (28.0-37.0); MCV 86.4 fL (80.0-100.0); MPV 8.2 fl. (7.2-11.1); RBC 3.89 mil/uL (4.50-6.00); RDW-CV 12.8 % (10.5-14.5); WBC 14.4 thou/uL (4.0-11.0)
[2019-08-27 04:35] LABS: ALBUMIN 2.1 g/dL (3.4-5.0); CALCIUM 7.8 mg/dL (8.5-10.1); CREATININE 0.9 mg/dL (0.6-1.3); MAGNESIUM 1.8 mg/dL (1.8-2.4); POTASSIUM 3.3 mmol/L (3.5-5.1); TOTAL BILIRUBIN 0.2 mg/dL (<0.1-1.0); TOTAL PROTEIN 5.9 g/dL (6.4-8.2)
--- NOTE | 2019-08-27 06:52 | NUR ---
Alert and oriented x 4. Vitals are stable. He does complain of pain in his right upper chest,especially with inhalation. He does have a hard time taking in a deep breath. Roomair sat 92-93% Encouraged to do I.S. He has had morphine x 2 for pain 04/13. This am K+ and Mg+ are low and electrolyte protocol was followed. He has been up independently to the bathroom. He has slept intermittenly.
[2019-08-27 09:00] VITALS: BP 126/82
--- NOTE | 2019-08-27 11:17 | NUR ---
VISITED WITH PT IN ROOM. NO DC PLAN FOR TODAY. PT CONTINUES TO REPORT ABD PAIN AND A WORKUP IS STILL IN PROGRESS. COLONOSCOPY YESTERDAY. DENIES HH NEEDS WHEN HE DISCHARGES. CM WILL BE AVAILABLE IF NEEDS ARISE
[2019-08-27 16:00] VITALS: BP 122/86
--- NOTE | 2019-08-27 19:00 | NUR ---
PATIENT PLEASANT AND COOPERATIVE THRU SHIFT W/ ASSESS AND CARES. TESTING DONE ORDERED. SEE MAR. HRLY ROUNDS DONE. IV FLUIDS INFUSING W/O DIFF. ALERT AND ORIENTED. ~DEVANTERN
[2019-08-27 21:08] VITALS: BP 129/84
--- NOTE | 2019-08-28 04:00 | NUR ---
ASSUMED CARE OF PT 08/27/19 AT APPROX 1930, PT A&OX4, PT ON ROOM AIR, VSS, PT C/O RT CHEST PAIN WITH INHALATION, EXACERBATED WITH DEEP BREATHING, INSTRUCTED PT ON USE OF INCENTIVE SPIROMETER AND ENCOURAGED USE, TYLENOL REQUESTED FOR PAIN - ADMINISTERED ORDERED, ASSESSMENTS AND HOURLY ROUNDINGS COMPLETED, WILL CONTINUE TO MONITOR.
[2019-08-28 05:36] LABS: CALCIUM 7.8 mg/dL (8.5-10.1); CREATININE 0.9 mg/dL (0.6-1.3); POTASSIUM 3.3 mmol/L (3.5-5.1)
[2019-08-28 08:00] VITALS: BP 141/84
[2019-08-28] MEDS ORDERED: PROTONIX40 M4 PO (10:42)
--- NOTE | 2019-08-28 11:14 | NUR ---
DR WELLS PAGED TO DISCUSS CTA RESULTS FROM YESTERDAY PRIOR TO DISCHARGE
[2019-08-28 12:08] VITALS: BP 141/84
[2019-08-28 13:36] VITALS: BP 141/84
--- NOTE | 2019-08-30 13:07 | PATH ---
[address] [address] PATHOLOGY RPT PROCEDURE Name: DARCI KAUFFMAN Room: [address] IN M.R.#: [id number] Admission: 08/16/19 Date of : 68 Discharge: 08/28/19 Report #: [id number] Path Case #: [id number] [facility] Accession Number: [id number] . 01 Material submitted: . colon - RANDOM COLON BIOPSIES . 01 Clinical history: . None provided . 02 Diagnosis: Colonic mucosa "random colon biopsies": - No obvious diagnostic changes. - There is no evidence of acute cryptitis, granulomas, adenomatous change, changes of microscopic colitis or malignancy. (SHA:pit 08/30/2019) QTP 08/30/2019 1011 Local . 02 Electronically signed: . Patrick Max MD, Pathologist NPI- [id number] . 01 Gross description: . Received in formalin labeled "Darci Kauffman, random colon biopsies to rule out colitis," are 6 segments of luna soft tissue measuring 1.2 x 1.0 x 0.2 cm in aggregate dimensions and ranging from 0.3 to 0.5 cm in maximum dimension. The specimen is submitted entirely in cassette A1. (TSD; 08/27/2019) TOB/TOB 08/27/2019 1940 Local . 02 Pathologist provided ICD-10: R10.9, K80.20 . 02 CPT . 253581 Specimen Comment: A courtesy copy of this report has been sent to [phone], [phone] Specimen Comment: [phone], Specimen Comment: Report sent to , and Performed at: 01 [facility] [address] [place] [address] [id number] MD Sergo Coronado MD Phone: [phone] Performed at: [address] [id number] MD Austyn Dinero MD Phone: [phone]
== END 2019-08-28 13:45 | disposition home or self-care (01) | DRG 444 ==
LOC: M.ERS 19:25 → M.ORTHSURG 22:28 → M.TBA-ER 22:28 → M.ORTHSURG 08-17 00:23
PROVIDERS: Emergency Medicine; Internal Medicine; Surgery; ADMIT Internal Medicine
PROC: 0DB68ZX Excision of Stomach, Via Natural or Artificial Opening Endoscopic, Diagnostic (ICD-10-PCS; principal; 2019-08-18)
PROC: 0DB98ZX Excision of Duodenum, Via Natural or Artificial Opening Endoscopic, Diagnostic (ICD-10-PCS; principal; 2019-08-18)
PROC: 0DBE8ZX Excision of Large Intestine, Via Natural or Artificial Opening Endoscopic, Diagnostic (ICD-10-PCS; 2019-08-26)
PROC: 0DBQ8ZZ Excision of Anus, Via Natural or Artificial Opening Endoscopic (ICD-10-PCS; 2019-08-26)
DX: K80.21 Calculus of gallbladder without cholecystitis with obstruction (principal); E43 Unspecified severe protein-calorie malnutrition; K56.7 Ileus, unspecified; N17.9 Acute kidney failure, unspecified; K56.609 Unspecified intestinal obstruction, unspecified as to partial versus complete obstruction; K29.70 Gastritis, unspecified, without bleeding; K21.9 Gastro-esophageal reflux disease without esophagitis; E78.5 Hyperlipidemia, unspecified; R20.8 Other disturbances of skin sensation; D72.829 Elevated white blood cell count, unspecified; F17.210 Nicotine dependence, cigarettes, uncomplicated; E03.9 Hypothyroidism, unspecified; F41.9 Anxiety disorder, unspecified; F43.9 Reaction to severe stress, unspecified; K59.00 Constipation, unspecified; K44.9 Diaphragmatic hernia without obstruction or gangrene; E83.42 Hypomagnesemia; E83.39 Other disorders of phosphorus metabolism; E86.0 Dehydration; F10.10 Alcohol abuse, uncomplicated; Z90.49 Acquired absence of other specified parts of digestive tract; Z79.899 Other long term (current) drug therapy; Z28.21 Immunization not carried out because of patient refusal

== ENCOUNTER 2020-05-06 20:16 | Inpatient (IN) | payer OTHER ==
[~2020-05-06] VITALS: Ht 175.3 cm; Wt 81.6 kg
--- NOTE | ~2020-05-06 | EMS ---
[place] [address] [place] [address] EMS Patient Care Report Name: DARCI HERRERA Room: [address] IN M..#: [id number] Admission: 05/06/20 Attend Phys: Saul Zazueta, Discharge: 05/09/20 Date of : 68 Report #: [id number] THIS REPORT FOR: //name// Report Transmitted: 05/10/2020 13:46 EMS Care Summary [place] [employer] [facility] Incident 20-0814 @ 05/06/2020 19:44 Incident Location [address] [place] [address] Patient DARCI HERRERA Male, 49 Years 1970 Patient Address [address] [place] [address] Patient History Cancer, Unspecified, Patient Allergies No known allergies, Chief Complaint Chest pain Disposition Transported Lights/[place] Dispatch Reason Chest Pain (Non-Traumatic) Transported To [facility] EMS was dispatched for chest pain. Upon our arrival, patient was laying on the sofa unresponsive. stated that he had started complaining of chest pain approx 15 minutes prior to our arrival. Pt told his that the pain was radiating down his left arm. Upon ems contact with patient, he was unresponsive. Fast patches were applied. At this time, patient had woke up and stated that he was in pain and grabbing at his chest. At this point, patient Des[address] [address] EMS Patient Care Report Name: DARCI HERRERA Room: [address] IN .R.#: [id number] Admission: 05/06/20 Attend Phys: Saul Zazueta, Discharge: 05/09/20 Date of : 68 Report #: [id number] had became unresponsive again. Patient was breathing on his own with SATS of 98 %. EMS loaded patient onto the stretcher to prepare for transport. During transport, a 12 Lead was obtained for the ER Doc to compare with. During transport, Patient would wake up, thrash around stating that his chest hurts and he hated Chemo. Pt stated that he had his last chemo for colon cancer last Friday. I could not get the patient to tell me if he had any medications that he took on a regular basis. Patient was asked if he had been drinking alcohol. EMS staff could smell alcohol on his breath. Pt stated he only had 2 shots of whisky. During transport, patient started saying that he could not breath even though his O2 SATS were 98 on room air. EMS applied O2, 6 liters for comfort measures. Patients SATS remained 98 %. Pt was monitored during transport. Pt care was transferred over to [facility] ER staff. Initial Vitals @19:57P: 86,R: 16,BP: 176/127,Pain: 10/10,GCS: 4,SpO2: 98,Revised Trauma: 9, @20:09P: 92,R: 20,BP: 148/106,Pain: 10/10,GCS: 14,SpO2: 98,Revised Trauma: 12, Assessments @20:13MENTAL:Unresponsive,Person Oriented,SKIN:HEENT:Head/Face: No Abnormalities,Eyes: No Abnormalities,Neck/Airway: No Abnormalities,LUNG SOUNDS:General: No Abnormalities,Left Upper: No Abnormalities,Right Upper: No Abnormalities,Left Lower: No Abnormalities,Right Lower: No Abnormalities,ABDOMEN:General: No Abnormalities,Left Upper: No Abnormalities,Right Upper: No Abnormalities,Left Lower: No Abnormalities,Right Lower: No Abnormalities,PELVIS//GI:No Abnormalities,EXTREMITIES:Left Arm: No Abnormalities,Right Arm: No Abnormalities,Left Leg: No Abnormalities,Right Leg: No Abnormalities,PULSE:Radial: 2+ Normal,NEURO:No Abnormalities, Impression Chest Pain / Discomfort Timeline 19:44,Call Received 19:44,Dispatched 19:46,En Route 19:50,Initial Responder On Scene 19:50,On Scene 19:56,At Patient 19:57,BP: 176/127 M,PULSE: 86,RR: 16 R,SPO2: 98 Ox,ETCO2: ,BG: ,PAIN: 10,GCS: 4, 19:59,Depart Scene 20:09,BP: 148/106 M,PULSE: 92,RR: 20 R,SPO2: 98 Ox,ETCO2: ,BG: ,PAIN: 10,GCS: 14, 20:13,At Destination 20:15,[place] [address] EMS Patient Care Report Name: DARCI HERRERA Room: [address] IN [facility]#: [id number] Admission: 05/06/20 Attend Phys: Saul Zazueta, Discharge: 05/09/20 Date of : 68 Report #: [id number] 20:43,Call Closed 20:43,In District Disclaimer v1.1 Copyright 2020 [employer] This EMS Care Summary contains data elements from the applicable legal record (which may be displayed differently). It is designed to provide pertinent information for the following purposes: continuity of care, clinical quality, and state data reporting. The complete legal record is available to ED staff and administrators of the receiving hospital in [facility]'s Patient Tracker. All data is provided "as is."
--- NOTE | ~2020-05-06 | EEG ---
[address] [address] EEG STUDY REPORT Name: DARCI HERRERA Room: [address] IN M.R.#: [id number] Admission: 05/06/20 Attend Phys: Saul Zazueta, Discharge: 05/09/20 Date of : 68 Report #: [id number] THIS REPORT FOR: //name// CC: Chip Zazueta DATE OF SERVICE: 05/09/2020 This patient is being evaluated for an episode of syncope. EEG was done by placing the electrode by standard 10-20 system of electrode placement. Both referential and sequential montages were used for recording. Background activity in this patient's EEG is about 9 Hz and 30 microvolt. Photic stimulation is unremarkable. It is intermixed with mild theta range slowing. The patient went to sleep that is associated with bilateral slowing and vertex sharp waves. Throughout the record, no active epileptiform activity was noticed. IMPRESSION: This patient's EEG is intermixed with mild theta range slowing. That is a nonspecific abnormality, which can occur with drowsiness, effect of psychotropic medication, dementia, etc. Clinical correlation is recommended. By: [id number] Tejada MD /nt
--- NOTE | ~2020-05-06 | EMS ---
[place] [address] EMS Patient Care Report Name: DARCI HERRERA Room: [address] IN ..#: [id number] Admission: 05/06/20 Attend Phys: Saul Zazueta, Discharge: Date of : 68 Report #: [id number] THIS REPORT FOR: //name// Report Transmitted: 05/07/2020 07:27 EMS Care Summary [place] [employer] [facility] Incident 20-0814 @ 05/06/2020 19:44 Incident Location [address] [place] [address] Patient DARCI HERRERA Male, 49 Years 1970 Patient Address [address] [place] [address] Patient History Cancer, Unspecified, Patient Allergies No known allergies, Chief Complaint Chest pain Disposition Transported Lights/[place] Dispatch Reason Chest Pain (Non-Traumatic) Transported To [facility] EMS was dispatched for chest pain. Upon our arrival, patient was laying on the sofa unresponsive. stated that he had started complaining of chest pain approx 15 minutes prior to our arrival. Pt told his that the pain was radiating down his left arm. Upon ems contact with patient, he was unresponsive. Fast patches were applied. At this time, patient had woke up and stated that he was in pain and grabbing at his chest. At this point, patient [place] [address] [address] EMS Patient Care Report Name: DARCI HERRERA Room: [address] IN .R.#: [id number] Admission: 05/06/20 Attend Phys: Saul Zazueta, Discharge: Date of : 68 Report #: [id number] had became unresponsive again. Patient was breathing on his own with SATS of 98 %. EMS loaded patient onto the stretcher to prepare for transport. During transport, a 12 Lead was obtained for the ER Doc to compare with. During transport, Patient would wake up, thrash around stating that his chest hurts and he hated Chemo. Pt stated that he had his last chemo for colon cancer last Friday. I could not get the patient to tell me if he had any medications that he took on a regular basis. Patient was asked if he had been drinking alcohol. EMS staff could smell alcohol on his breath. Pt stated he only had 2 shots of whisky. During transport, patient started saying that he could not breath even though his O2 SATS were 98 on room air. EMS applied O2, 6 liters for comfort measures. Patients SATS remained 98 %. Pt was monitored during transport. Pt care was transferred over to [facility] ER staff. Initial Vitals @19:57P: 86,R: 16,BP: 176/127,Pain: 10/10,GCS: 4,SpO2: 98,Revised Trauma: 9, @20:09P: 92,R: 20,BP: 148/106,Pain: 10/10,GCS: 14,SpO2: 98,Revised Trauma: 12, Assessments @20:13MENTAL:Unresponsive,Person Oriented,SKIN:HEENT:Head/Face: No Abnormalities,Eyes: No Abnormalities,Neck/Airway: No Abnormalities,LUNG SOUNDS:General: No Abnormalities,Left Upper: No Abnormalities,Right Upper: No Abnormalities,Left Lower: No Abnormalities,Right Lower: No Abnormalities,ABDOMEN:General: No Abnormalities,Left Upper: No Abnormalities,Right Upper: No Abnormalities,Left Lower: No Abnormalities,Right Lower: No Abnormalities,PELVIS//GI:No Abnormalities,EXTREMITIES:Left Arm: No Abnormalities,Right Arm: No Abnormalities,Left Leg: No Abnormalities,Right Leg: No Abnormalities,PULSE:Radial: 2+ Normal,NEURO:No Abnormalities, Impression Chest Pain / Discomfort Timeline 19:44,Call Received 19:44,Dispatched 19:46,En Route 19:50,Initial Responder On Scene 19:50,On Scene 19:56,At Patient 19:57,BP: 176/127 M,PULSE: 86,RR: 16 R,SPO2: 98 Ox,ETCO2: ,BG: ,PAIN: 10,GCS: 4, 19:59,Depart Scene 20:09,BP: 148/106 M,PULSE: 92,RR: 20 R,SPO2: 98 Ox,ETCO2: ,BG: ,PAIN: 10,GCS: 14, 20:13,At Destination 20:15,Transfer Patient [facility] [address] [place] [address] EMS Patient Care Report Name: DARCI HERRERA Room: [address] IN [facility]#: [id number] Admission: 05/06/20 Attend Phys: Saul Zazueta, Discharge: Date of : 68 Report #: [id number] 20:43,Call Closed 20:43,In District Disclaimer v1.1 Copyright 2020 [employer] This EMS Care Summary contains data elements from the applicable legal record (which may be displayed differently). It is designed to provide pertinent information for the following purposes: continuity of care, clinical quality, and state data reporting. The complete legal record is available to ED staff and administrators of the receiving hospital in [employer]'s Patient Tracker. All data is provided "as is."
[~2020-05-06 20:16] MED LIST: EUTHYROX175 MCG PO; PROTONIX40 M4 PO
[2020-05-06 20:19] VITALS: BP 136/96
[2020-05-06 20:57] LABS: POTASSIUM 3.5 mmol/L (3.5-5.1)
[2020-05-06 20:58] LABS: INR 0.9; PROTIME 9.6 Seconds (9.20-11.50)
[2020-05-06 21:07] LABS: ALBUMIN 3.6 g/dL (3.4-5.0); MAGNESIUM 2.2 mg/dL (1.8-2.4)
[2020-05-06 21:24] LABS: ABSOLUTE BASOPHILS 0.1 thou/uL (0.0-0.2); ABSOLUTE EOSINOPHILS 0.1 thou/uL (0.0-0.7); ABSOLUTE LYMPHOCYTES 4.2 thou/uL (0.8-5.3); ABSOLUTE MONOCYTES 0.9 thou/uL (0.0-1.2); BASOPHILS 0.8 %; EOSINOPHILS 1.2 %; HEMATOCRIT 39.3 % (42.0-52.0); HEMOGLOBIN 14.3 gm/dL (14.0-18.0); LYMPHOCYTES 40.7 %; MCH 33.2 pg (26.0-34.0); MCHC 36.4 g/dL (28.0-37.0); MCV 91.4 fL (80.0-100.0); MONOCYTES 8.9 %; MPV 8.7 fl. (7.2-11.1); NUCLEATED RBCS 0 /100WBC; PLATELET COUNT* 207 thou/uL (150-400); POLYS 48.4 %; RDW-CV 18.5 % (10.5-14.5); WBC 10.3 thou/uL (4.0-11.0)
[2020-05-06 21:32] LABS: GLUCOSE 91.2 mg/dL (70-99); SGOT 40.8 U/L (15-37)
[2020-05-06 21:33] LABS: SGPT 37.2 U/L (30-65); TOTAL BILIRUBIN 0.2 mg/dL (<0.1-1.0); TOTAL PROTEIN 6.5 g/dL (6.4-8.2)
[2020-05-06 23:28] VITALS: BP 125/80
[2020-05-07 05:01] VITALS: BP 112/78
[2020-05-07 07:40] VITALS: BP 134/93
[2020-05-07 11:30] VITALS: BP 129/80
--- NOTE | 2020-05-07 11:48 | CON ---
[address] [address] CONSULTATION Name: DARCI HERRERA Room: [address] IN M.R.#: [id number] Admission: 05/06/20 Attend Phys: Saul Zazueta, Discharge: Date of : 68 Report #: [id number] THIS REPORT FOR: //name// cc: Chip Brown Brad DO ~ THIS REPORT FOR: //name// CC: Chip Zazueta DATE OF SERVICE: 05/07/2020 CARDIOLOGY CONSULTATION HISTORY OF PRESENT ILLNESS: The patient is a 49-year-old white male who I was asked to see in the hospital today after he complained of chest pain. The patient has an extensive and complicated past medical history. 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 Apparently, he had one last year at [facility] that was unremarkable. He stays very active, working in his yard. Apparently in September, he had his gallbladder removed at [facility]. However, he continued to have abdominal pain. He then was admitted to [facility] and had his appendix removed. 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 A Port-A-Cath was then placed. He started receiving chemotherapy every 3 days at [facility]. He just finished his chemotherapy. He is now supposed to take pills, which he stopped taking because of all the side effects. He denies any recent fever, cough, bleeding, or trauma to his chest. However, last night, he was at home when he suddenly felt a pain in his chest. Paramedics were called. When they I arrived, apparently, he was unresponsive. He denied any recent palpitations, syncope, fever or cough. The pain was not related to food. He had no trauma to his chest. There is no rash. There is no radiation of the pain. He was brought here to [place] and admitted. PAST MEDICAL HISTORY: Otherwise, he had a vasectomy. No history of hypertension, diabetes. MEDICATIONS: On admission consisted of Synthroid, Protonix. ALLERGIES: He has no known drug allergies. FAMILY HISTORY: His sister has diabetes. SOCIAL HISTORY: He is . He and his live in [place], [place]. 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 Smokes half pack of cigarettes a day, has 2 [place] [address] CONSULTATION Name: DARCI HERRERA Room: [address]#: [id number] Admission: 05/06/20 Attend Phys: Saul Zazueta, Discharge: Date of : 68 Report #: [id number] REVIEW OF SYSTEMS: No history of stroke, asthma, liver disease, GI bleeding, kidney disease, psychiatric illness or chronic skin condition. PHYSICAL EXAMINATION: GENERAL: Revealed a middle-aged male, lying in bed, appeared in no acute distress. VITAL SIGNS: He had a blood pressure of 120/70, pulse 60, he is afebrile. HEENT: He was anicteric. Conjunctivae are pink. Mucous membranes moist. NECK: Veins nondistended. No carotid bruits. Neck supple. CHEST: Clear to auscultation. CARDIOVASCULAR: Regular rate without murmur. ABDOMEN: Soft. EXTREMITIES: Had no edema. Posterior tibial pulse 2+ bilaterally. SKIN: Cool and dry. NEUROLOGIC: Nonfocal. LYMPH: No adenopathy. MUSCULOSKELETAL: No joint effusion. DIAGNOSTIC DATA: His ECG last night showed a normal sinus rhythm. His workup last night, he had a chest x-ray, normal heart size and clear lung watson. Actually had a CT scan of the chest using a PE protocol that showed no evidence of pulmonary embolus, otherwise unremarkable. LABORATORY DATA: He had lab work, sodium 141, potassium 3.5, BUN 18, creatinine 1.0. His lipase was 2156, SGOT 40, SGPT 37. Troponins all 0.06. His white blood cell count 10.3, hemoglobin 14.3. IMPRESSION AND RECOMMENDATIONS: 1. Chest pain. Atypical for angina. Before performing any cardiac evaluation, I would recommend obtaining the results of the stress test the patient had done last year at [facility]. I suspect his chest pain is noncardiac. 2. Altered mental status. Possibly is alcohol. The patient appears awake at this time. 3. History of carcinoma of the appendix. The patient recently completed chemotherapy. 4. Tobacco abuse. <ELECTRONICALLY SIGNED> By: Reed Cowart MD, FACC 05/07/20 1148 0953 1100David Jack Cowart MD, FACC /nt
--- NOTE | 2020-05-07 12:15 | EKG ---
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: [place] : 1970 Requested By: Sun Dee Order Number: [id number] MD: Reed Cowart Measurements Intervals [place] Rate: 71 P: 36 SC: 203 QRS: -42 QRSD: 108 T: 47 QT: 393 QTc: 428 Interpretive Statements Sinus rhythm Borderline prolonged SC interval Left axis deviation Low voltage, extremity leads Abnormal R-wave progression, late transition Baseline wander in lead(s) V3 Compared to ECG 08/17/2019 10:32:37 ST (T wave) deviation no longer present Electronically Signed On 05-07-2020 12:15:44 CDT by Reed Cowart [email or web address] <ELECTRONICALLY SIGNED> By: Reed Cowart MD, FACC 05/07/20 1215 19 19 Reed Cowart MD, FAC /EPI
--- NOTE | 2020-05-07 14:21 | NUR ---
ASSUMED CARE OF PT AT 0730. PT LYING IN BED. PT A&0X4, ANXIETY NOTED. CIWA BETWEEN 3-4. CONTROLLED WITH SCHEDULED PO ATIVAN. PT DENIES ANY PAIN OR SHORTNESS OF BREATH AT THIS TIME. TRACING SR WITH FIRST DEGREE ON THE PERCH MACHINE INSPECTOR. ON RA SAT UPPER 90'S. PT UP WITH 1 ASSIST TO BATHROOM-UNSTEADY AT TIMES. IVF. PULM AND NEURO CONSULT PLACED TODAY PER DR MADISON. CARDIOLOGY SEEN PT AND SIGNED OFF. NO NEW ORDERS RECEIVED. PT GOAL FOR TODAY IS ADVANCE DIET TOLERATED, REMAIN FREE FROM CHEST PAIN AND MONITOR CIWA. AM ASSESSMENT CHARTED. MEDICATIONS PER OCT. PT REPOSITIONS SELF. HOURLY ROUNDING OBSERVED. BED IN LOW POSITION. BED ALARM IN PLACE. FALL PRECAUTIONS IN PLACE. CALL LIGHT WITHIN REACH. WILL CONTINUE PLAN OF CARE.
[2020-05-07 16:00] VITALS: BP 138/94
--- NOTE | 2020-05-07 19:10 | NUR ---
NO ACUTE CHANGES THROUGHOUT SHIFT. REFER TO CHARTING. PT DENIES ANY CHEST PAIN THROUGHOUT SHIFT. CIWA REMAINS BETWEEN 3-4. NEW IV PLACED TO RIGHT FOREARM FOR IV ABX. REMAINED AT BEDSIDE THROUGHOUT SHIFT. UP WITH 1 ASSIST TO BATHROOM-IMPULSIVE AT TIMES. NEURO HERE TO SEE PT THIS EVENING. BED ALARM IN PLACE. MEDS PER OCT. PT REPOSITIONS SELF. HOURLY ROUNDING OBSERVED. BED IN LOW POSITION. CALL LIGHT WITHIN REACH. WILL CONTINUE PLAN OF CARE.
[2020-05-07 20:00] VITALS: BP 135/86
[2020-05-08] VITALS (7 sets, daily range): BP systolic 125–161; BP diastolic 68–100
[2020-05-08 05:00] LABS: HEMATOCRIT 35.6 % (42.0-52.0); HEMOGLOBIN 12.8 gm/dL (14.0-18.0); MCH 32.5 pg (26.0-34.0); MCV 90.1 fL (80.0-100.0); MPV 8.3 fl. (7.2-11.1); RBC 3.95 mil/uL (4.50-6.00); RDW-CV 18.9 % (10.5-14.5); WBC 7.3 thou/uL (4.0-11.0)
[2020-05-08 05:39] LABS: ALBUMIN 3.2 g/dL (3.4-5.0); ALKALINE PHOSPHATASE 87 U/L (46-116); ANION GAP 8 mmol/L (7-16); BUN 11 mg/dL (7-18); CHLORIDE 108 mmol/L (98-107); CHOLESTEROL 164 mg/dL (<200); CO2 26 mmol/L (21-32); GLUCOSE 99 mg/dL (70-99); HDL CHOLESTEROL 30 mg/dL (>40); LDL CHOLESTEROL 66 mg/dL (<100); MAGNESIUM 2.1 mg/dL (1.8-2.4); POTASSIUM 3.3 mmol/L (3.5-5.1); SGOT 32 U/L (15-37); SGPT 31 U/L (30-65); SODIUM 142 mmol/L (136-145); TC:HDL 5.5 Ratio (Not establshd); TOTAL BILIRUBIN 0.4 mg/dL (<0.1-1.0); TOTAL PROTEIN 6.5 g/dL (6.4-8.2); TRIGLYCERIDE 341 mg/dL (<150); TROPONIN-I LEVEL <0.06 ng/mL (<0.06); VLDL 68 mg/dL (<40)
[2020-05-08 05:54] LABS: SERUM ASSESSMENT CLEAR
--- NOTE | 2020-05-08 07:19 | NUR ---
ASSUMED CARE OF PT AFTER REPORT AT 1930. PT A&OX4. VSS. PHYSCAL ASSESSMENT COMPLETED AND CHARTED. PT ON RA. PT TRACING SR/SB/1ST DEG ON TELE. PT UP WITH 1 ASSIST TO RESTROOM. PT DENIES ANY PAIN. CIWA & ORTHOSTATIC CHARTED. FALL PRECAUTIONS IN PLACE. CALL LIGHT WITHIN REACH.
--- NOTE | 2020-05-08 09:47 | EKG ---
[place] [address] ELECTROCARDIOGRAM REPORT Name: DARCI HERRERA Room: [address] ADM IN M.R.#: [id number] Admission: 05/06/20 Attend Phys: Saul Villar Discharge: Date of : 68 Date of Service: 05/08/20 0939 Report #: [id number] THIS REPORT FOR: //name// [facility] Test Date: 2020-05-08 Test Time: 09:39:24 Pat Name: DARCI HERRERA Department: Room: [address] Gender: M Human Resource Consultant: : 1970 Requested By: Reed Cowart Order Number: [id number] MD: Reed Cowart Measurements Intervals [place] Rate: 74 P: 51 MA: 187 QRS: -58 QRSD: 105 T: 49 QT: 398 QTc: 442 Interpretive Statements Sinus rhythm Left anterior fascicular block Abnormal R-wave progression, late transition Compared to ECG 05/06/2020 20:20:08 no change Electronically Signed On 05-08-2020 9:47:43 CDT by Reed Cowart [email or web address] <ELECTRONICALLY SIGNED> By: Reed Cowart MD, FAC 05/08/20 0947 Reed Cowart MD, [facility] /EPI
--- NOTE | 2020-05-08 11:54 | NUR ---
CM SPOKE TO THE PT TO DISCUSS HIS HOME SITUATION, DISCHARGE PLANNING, AND TO INFORM OF THE ROLE OF CM. PT A&O, INDEPENDENT WITH ADLS', ACTIVE AND WORKS. PT RESIDES AT HOME WITH SPOUSE. PT OWNS 0 DME. PT HAS 0 HX OF HH OR SNF. CM INFORMED DURING PRIME ROUNDING THAT AT THIS TIME PT'S CIWA IS NEGATIVE AND PLAN FOR POSSIBLE D/C TOMORROW PENDING LABS. CM WILL REMAIN AVAILABLE TO ASSIST AND FOLLOW NEEDED.
--- NOTE | 2020-05-08 15:14 | 2DMMODE ---
[place] [address] 2 D/M-MODE ECHOCARDIOGRAM Name: DARCI HERRERA Room: [address] IN M.R.#: [id number] Admission: 05/06/20 Attend Phys: Saul Villar Discharge: Date of : [birth year] Date of Service: 05/08/20 1514 Report #: [id number] THIS REPORT FOR: cc: Chip Brown Brad DO Blick,Reed Santiago MD [facility] ~ APPROVED REPORT Study performed: 05/08/2020 13:31:50 EXAM: Comprehensive 2D, Doppler, and color-flow Echocardiogram Patient Location: Bedside BSA: 1.98 HR: 70 bpm BP: 147/87 mmHg Other Information Study Quality: Fair Indications Syncope Chest Pain 2D Dimensions IVSd: 13.81 (7-11mm) LVOT Diam: 22.04 (18-24mm) LVDd: 47.78 mm PWd: 12.90 (7-11mm) Ascending Ao: 36.85 (22-36mm) LVDs: 42.33 (25-40mm) Aortic Root: 35.86 mm Volumes Left Atrial Volume (Systole) LA ESV Index: 25.90 mL/m2 Aortic Valve AoV Peak Jesse.: 1.05 m/s AO Peak Gr.: 4.45 mmHg LVOT Max P.87 mmHg AO Mean Gr.: 2.18 mmHg LVOT Mean P.56 mmHg LVOT Max V: 0.85 m/s AO V2 VTI: 17.51 cm LVOT Mean V: 0.59 m/s GURWINDER (VTI): 3.22 cm2 LVOT V1 VTI: 14.80 [place] [address] 2 D/M-MODE ECHOCARDIOGRAM Name: DARCI HERRERA Room: [address] IN M.R.#: [id number] Admission: 05/06/20 Attend Phys: Saul Villar Discharge: Date of : 68 Date of Service: 05/08/20 1514 Report #: [id number] E/A Ratio: 0.75 MV Decel. Time: 279.71 ms MV E Max Jesse.: 0.55 m/s MV PHT: 81.12 ms MVA (PHT): 2.71 cm2 TDI E/Lateral E': 7.86 E/Medial E': 7.86 Medial E' Jesse.: 0.07 m/s Lateral E' Jesse.: 0.07 m/s Pulmonary Valve PV Peak Jesse.: 0.80 m/s PV Peak Gr.: 2.58 mmHg Tricuspid Valve RAP Estimate: 20.00 mmHg TR Peak Gr.: 8.41 mmHg RVSP: 28.41 mmHg PA Pressure: 28.41 mmHg Left Ventricle The left ventricle is normal size. Mild concentric left ventricular hypertrophy. Left ventricular systolic function is borderline. LVEF is 50-55%. Grade I - abnormal relaxation pattern. Right Ventricle The right ventricle is normal size. The right ventricular systolic function is normal. Atria The left atrium size is normal. The right atrium size is normal. Aortic Valve The aortic valve is normal in structure. No aortic regurgitation is present. There is no aortic valvular stenosis. Mitral Valve The mitral valve is normal in structure. There is no mitral valve regurgitation noted. No evidence of mitral valve stenosis. Possible mitral valve prolapse. Tricuspid Valve The tricuspid valve is normal in structure. Trace tricuspid regurgitation[place] [address] 2 D/M-MODE ECHOCARDIOGRAM Name: DARCI HERRERA Room: [address] IN [facility]#: [id number] Admission: 05/06/20 Attend Phys: Saul Villar Discharge: Date of : 68 Date of Service: 05/08/20 1514 Report #: [id number] Pulmonic valve is not well visualized. There is no pulmonic valvular regurgitation. Great Vessels The aortic root is normal in size. The IVC is dilated. Pericardium There is no pericardial effusion. <Conclusion> Mild concentric left ventricular hypertrophy. LVEF is 50-55%. <ELECTRONICALLY SIGNED> By: Reed Cowart MD, FACC 05/08/20 1514 1514 1514 Reed Cowart MD, FACC /INF
--- NOTE | 2020-05-08 19:05 | NUR ---
pt has remained alert and oriented this shift. ciwa scale was 0 this am. pt has been cooperative. remains high fall risk and uses call light to obtain nursing assist with ambulation. resting quietly at this time. no c/o pain or distress
--- NOTE | 2020-05-08 20:00 | NUR ---
RECEIVED REPORT AND ASSUMED CARE OF PT, ASSESSMENT COMPLETED. PT SOMEWHAT ANXIOUS MAKING CWAL SCORE 1. NO COMPLAINTS VOICED. TELEMETRY ON SHOWING SR. WILL CONT TO MONITOR AND ASSIST NEEDED.
[2020-05-09 00:08] VITALS: BP 137/90
[2020-05-09 04:21] VITALS: BP 140/80
[2020-05-09 04:51] LABS: ABSOLUTE EOSINOPHILS 0.1 thou/uL (0.0-0.7); ABSOLUTE LYMPHOCYTES 2.5 thou/uL (0.8-5.3); ABSOLUTE MONOCYTES 0.7 thou/uL (0.0-1.2); ABSOLUTE NEUTROPHILS 3.3 thou/uL (1.6-8.1); BASOPHILS 0.6 %; EOSINOPHILS 1.8 %; HEMATOCRIT 33.2 % (42.0-52.0); LYMPHOCYTES 37.5 %; MCH 32.4 pg (26.0-34.0); MCHC 36.1 g/dL (28.0-37.0); MCV 89.7 fL (80.0-100.0); MONOCYTES 11.1 %; MPV 8.2 fl. (7.2-11.1); NUCLEATED RBCS 0 /100WBC; PLATELET COUNT* 113 thou/uL (150-400); RDW-CV 18.5 % (10.5-14.5); WBC 6.7 thou/uL (4.0-11.0)
[2020-05-09 05:11] LABS: ALBUMIN 3.1 g/dL (3.4-5.0); CALCIUM 8.3 mg/dL (8.5-10.1); MAGNESIUM 2.1 mg/dL (1.8-2.4); POTASSIUM 3.6 mmol/L (3.5-5.1); TOTAL BILIRUBIN 0.4 mg/dL (<0.1-1.0); TOTAL PROTEIN 6.2 g/dL (6.4-8.2)
--- NOTE | 2020-05-09 06:44 | NUR ---
SLEPT WELL. GAIT STEADY TO AND FROM BR. CONT TO BE SL ANXIOUS. TELEMETRY CONT TO SHOW SR. NO CHANGE IN ASSESSMENT. HS GOALS OF REST AND SAFETY ACHIEVED. HOURLY ROUNDING OBSERVED.
[2020-05-09] MEDS ORDERED: LIPITOR40 MG PO (09:51)
[2020-05-09] MEDS ORDERED: LEVOFLOXACIN500 MG PO (09:51)
[2020-05-09] MEDS ORDERED: MONOCAPS TABLE1 EACH PO (09:51)
[2020-05-09] MEDS ORDERED: PROZAC20 MG PO (09:51)
[2020-05-09] MEDS ORDERED: GABAPENTIN 100100 MG PO (09:51)
--- NOTE | 2020-05-09 11:59 | NUR ---
CM INFORMED DURING PRIME ROUNDING OF PLAN FOR PT TO HAVE EEG TESTING DONE TODAY, AND POSSIBLY D/C PT PENDING RESULTS. NO D/C PLANNING NEEDS ANTICIPATED. CM WILL REMAIN AVAILABLE TO ASSIST AND FOLLOW NEEDED.
[2020-05-09 12:00] VITALS: BP 152/100
[2020-05-09 13:56] VITALS: BP 152/100
--- NOTE | 2020-05-09 16:23 | NUR ---
Pt cared for from 0700 until discharge at 1445. Pt has remained alert and oriented x 4. No c/o pain or distress. Skin warm and dry to touch. monitoring coordinator shows rhythm of sinus with a rate of 72/minute. Regular nonlabored breath sounds. Tolerates diet. Ambulatory in room with steady independent gait. EEG done prior to dismissal. IV and hall monitor have been discontinued. Reviewed dismissal instructions with patient who verbalizes understanding. Pt instructed to contact his primary care provider and neurologist as recommended. Pt verbalizes understanding. Pt to exit via wheelchair at 1445 and will be transported home by his spouse. Stable at time of dismissal
--- NOTE | 2020-05-09 17:26 | NUR ---
PT. DISCHARGED TO HOME PRIOR TO O.T. EVAL. PLEASE ORDER FURTHER O.T. SERVICES IF NEEDED.
--- NOTE | 2020-05-09 23:18 | CON ---
[address] [address] CONSULTATION Name: JAVIERDARCI Abdirahman Room: [address] IN M.R.#: [id number] Admission: 05/06/20 Attend Phys: Saul Zazueta, Discharge: 05/09/20 Date of : 68 Report #: [id number] THIS REPORT FOR: //name// cc: Chip Brown Brad DO ~ THIS REPORT FOR: //name// CC: Chip Zazueta DATE OF SERVICE: 05/08/2020 Consult has been requested by Dr. Zazueta. INDICATION FOR CONSULTATION: Aspiration pneumonitis. HISTORY OF PRESENT ILLNESS: A 49-year-old gentleman. He is a smoker, also does have a history of alcohol intake, I am unable to quantify exactly at this time. This time has been admitted with complaints of chest pain associated with respiration and coughing. The patient has also reported to have had episode of unresponsiveness/possible seizure activity and is reported to have had a bout of coughing initially. The patient is not aware of any episode of vomiting or aspiration. The patient already has had a CTA chest performed, which does not show any pulmonary emboli or infiltrates. He did have an alcohol level of 196 and he does have pancreatitis. The patient has no other respiratory complaints. He does not have shortness of breath. He does not have a runny nose or sore throat. He is not febrile. He does not report chills. There is no swelling of lower extremities. There is no calf pain. The patient answers to the negative for 12 other questions for review of systems. The patient says that his chest pain with respiration and coughing initially has not subsided. PAST MEDICAL HISTORY: Recent diagnosis of carcinoma of the appendix/colon. He in January reports having had an appendectomy as well as a right hemicolectomy. He has been receiving chemotherapy, hypothyroidism, gastroesophageal reflux disease, hyperlipidemia, and gallbladder surgery. SOCIAL HISTORY: He is a smoker, half a pack or more a day. He has regular alcohol intake. Note that he is currently on a CIWA protocol. I am unable to quantify his alcohol intake exactly, no known history of illegal drug use. HOME MEDICATIONS: List in [place] reviewed. CURRENT MEDICATIONS: List in [place] reviewed. FAMILY HISTORY: There is no [place] [address] CONSULTATION Name: DARCI HERRERA Room: [address]#: [id number] Admission: 05/06/20 Attend Phys: Saul Zazueta, Discharge: 05/09/20 Date of : 68 Report #: [id number] PHYSICAL EXAMINATION: GENERAL: Alert, awake and oriented. He is calm. He does not appear to be in any distress at this time. VITAL SIGNS: Has a pulse of 70 and a blood pressure of 147/87. His respiratory rate is 16-18. He is afebrile with a temperature of 36.7. HEENT: Head is normocephalic and atraumatic. Pupils are equal and reactive. There is no throat erythema. NECK: Does not show raised JVP, asymmetry, mass or lymph nodes. CHEST: Symmetrical expansion on inspection and palpation. On auscultation, breath sounds are bilaterally equal, mildly decreased. I do not hear any added sounds. HEART: Regular. There is no murmur. ABDOMEN: Soft and nontender. EXTREMITIES: Lower extremities show no edema, no calf tenderness. SKIN: Dry and intact. NEUROLOGICAL: Moves all extremities bilaterally equally and spontaneously with no focal deficit identified. LABORATORY DATA: The patient did have a CTA chest performed, which does not show any pulmonary emboli and there are no infiltrates. There is no pulmonary vascular congestion either. The patient's CBC, which does show a drop in platelet count of 119, in [facility] reviewed. Chemistries in [facility] reviewed. Potassium of 3.3 noted. Coagulation studies showing mildly elevated D-dimer at 0.86 noted. His COVID-19 screen is negative. ASSESSMENT AND PLAN: 1. Cough/episode of unresponsiveness/possibility of aspiration pneumonitis. The patient's chest x-ray does not show any infiltrates. The patient did not describe to me any history of aspiration. The patient currently is on Zosyn. There are no other additional reasons to continue with Zosyn, then this could potentially be discontinued from a respiratory point of view. I will obtain a chest x-ray. If there is concern regarding aspiration pneumonitis and the patient could be treated for this with p.o. Augmentin. It is, however, noted that the patient has a significant elevation in lipase level does have pancreatitis, which may be another indication to treat him with Zosyn. 2. Acute pancreatitis. I would defer management to the primary service. Obtaining a right upper quadrant ultrasound could be a possible consideration. CT abdomen and pelvis reviewed. I would defer to the primary service whether Zosyn needs to be continued for pancreatitis. 3. Syncope/alcohol use. See discussion above. 4. Smoking/suspected underlying chronic obstructive pulmonary disease, I only ordered p.r.n. DuoNeb at this time, do recommend obtaining an outpatient pulmonary function test. Additional therapies could be considered should the patient become more symptomatic from a respiratory point of view. [address] [place] [address] CONSULTATION Name: DARCI HERRERA Room: [address] M.R.#: [id number] Admission: 05/06/20 Attend Phys: Saul Zazueta, Discharge: 05/09/20 Date of : 68 Report #: [id number] Thank you for this consultation. <ELECTRONICALLY SIGNED> By: Bairon Villalpando MD 05/09/20 2318 1430 [id number] Villalpando MD /nt
== END 2020-05-09 14:46 | disposition home or self-care (01) | DRG 178 ==
LOC: M.ERS 20:16 → M.2W 22:30 → M.TBA-ER 22:30 → M.2W 23:25
PROVIDERS: Emergency Medicine; Internal Medicine; Internal Medicine Cardiovascular Disease; Internal Medicine Critical Care Medicine; ADMIT Family Medicine; ATTEND Family Medicine
DX: J15.6 Pneumonia due to other Gram-negative bacteria (principal); K86.0 Alcohol-induced chronic pancreatitis; I95.9 Hypotension, unspecified; F10.129 Alcohol abuse with intoxication, unspecified; Y90.9 Presence of alcohol in blood, level not specified; E78.1 Pure hyperglyceridemia; E78.5 Hyperlipidemia, unspecified; F17.200 Nicotine dependence, unspecified, uncomplicated; E03.9 Hypothyroidism, unspecified; K21.9 Gastro-esophageal reflux disease without esophagitis; Z20.828 Contact with and (suspected) exposure to other viral communicable diseases; Z90.49 Acquired absence of other specified parts of digestive tract; Z85.038 Personal history of other malignant neoplasm of large intestine; Z92.21 Personal history of antineoplastic chemotherapy; Z79.899 Other long term (current) drug therapy; Z23 Encounter for immunization